=== PATIENT | male | born 1940 | race Caucasian/White ===

== ENCOUNTER 2025-03-01 08:21 | Inpatient (IN) | payer OTHER ==
[~2025-03-01] VITALS: Ht 170.2 cm; Wt 70.0 kg
[2025-03-01 08:39] LABS: BASOPHILS ABSOLUTE AUTO 0.08 K/mm3 (0.00-0.23); BASOPHILS PERCENT AUTO 1 % (0-2); EOSINOPHILS ABSOLUTE AUTO 0.14 K/mm3 (0.00-0.68); EOSINOPHILS PERCENT AUTO 2 % (0-6); Hematocrit 42.5 % (37.0-53.0); Hemoglobin 14.7 g/dL (13.5-17.5); IMMATURE GRAN ABSOLUTE AUTO 0.02 K/mm3 (0.00-0.10); IMMATURE GRAN PERCENT AUTO 0 % (0-1); LYMPHOCYTES ABSOLUTE AUTO 1.16 K/mm3 (0.84-5.20); LYMPHOCYTES PERCENT AUTO 15 % (21-46); MONOCYTES ABSOLUTE AUTO 0.84 K/mm3 (0.16-1.47); MONOCYTES PERCENT AUTO 11 % (4-13); Mean Corpuscular HGB Conc 34.6 g/dL (31.5-36.5); Mean Corpuscular Volume 96 fL (80-100); Mean Platelet Volume 10.5 fL (9.1-12.4); NEUTROPHILS ABSOLUTE AUTO 5.72 K/mm3 (1.96-9.15); NEUTROPHILS PERCENT AUTO 72 % (41-73); Platelet Count 219 K/mm3 (150-400); RDW Coefficient Variation 13.2 % (11.7-14.2); RDW Standard Deviation 47.4 fL (35.1-46.3); Red Blood Cell Count 4.45 M/mm3 (4.30-5.90); White Blood Cell Count 7.96 K/mm3 (4.00-11.30)
[2025-03-01 08:54] LABS: Alanine Aminotransfer (ALT/SGP 23 U/L (12-78); Albumin, Blood 3.2 g/dL (3.4-5.0); Albumin/Globulin Ratio 0.8 (0.8-1.8); Alk Phos 45 U/L (50-136); Anion Gap 8 mmol/L (3-11); Aspartate Aminotrans (AST/SGOT 40 U/L (12-37); Bilirubin, Total 1.1 mg/dL (0.1-1.0); Blood Urea Nitrogen 17 mg/dL (8-24); Bun/Creatinine Ratio 15.7 (12.0-20.0); CO2, Blood 27 mmol/L (21-32); Calcium, Blood 8.7 mg/dL (8.5-10.1); Chloride, Blood 109 mmol/L (98-108); Creatinine, Blood 1.08 mg/dL (0.60-1.20); Ethanol (Alcohol), Blood, Med <3 mg/dL; Globulin, Blood 3.9 g/dL (2.2-4.0); Glomerular Filtration Rate 67 (60-); Glucose, Blood 105 mg/dL (70-99); Potassium, Blood 4.9 mmol/L (3.5-5.5); Sodium, Blood 139 mmol/L (136-145); Total Protein, Blood 7.1 g/dL (6.4-8.2)
[2025-03-01 09:59] LABS: U Amphetamine Screen Not Detected; U Barbituate Screen Not Detected; U Benzodiazapine Screen Not Detected; U Buprenorphine Screen Not Detected; U Cannabinoids Screen Not Detected; U Cocaine Screen Not Detected; U Methadone Screen Not Detected; U Methamphetamine Screen Not Detected; U Opiates Screen Not Detected; U Oxycodone Screen Not Detected; U Phencyclidine Screen Not Detected
[2025-03-01] MEDS ORDERED: Clopidogrel Bisulfate 75 MG Tab PO ONE (10:05)
[2025-03-01] MEDS ORDERED: Aspirin 325 MG Tab PO ONE (10:05)
[2025-03-01 14:33] VITALS: BP 154/76
--- NOTE | 2025-03-01 14:51 | NUR ---
[facility] PERMISSION. [facility] AND [facility]. CARE ONGOING.
--- NOTE | 2025-03-01 15:00 | NUR ---
ADMIT SUMMARY: REPORT TAKEN FROM ANNE MARIE COTE IN THE ED. PT ARRIVED TO MEDICAL FLOOR VIA WHEELCHAIR WITH TECH. PT ABLE TO TRANSFER TO BED WITH SBA. PT CHANGED INTO GOWN WITH HELP. PT GIVEN WATER AND PUDDING PT ABLE TO SWALLOW WELL. THIS NURSE WITTNESSED PT VERBALIZING "YES" TO [place] RECORDS BEING SENT OVER TO [facility]. PT ONLY ABLE TO SAY SINGLE WORDS AT A TIME. PT UNABLE TO FORM SENTENCES CLEARLY.
[2025-03-01] MEDS ORDERED: Amlodipine Bes2.5 MG PO (15:50)
[2025-03-01] MEDS ORDERED: ASPIR 8181 M1 PO (15:51)
[2025-03-01] MEDS ORDERED: VITAMIN C WITH500 M1 PO (15:51)
[2025-03-01] MEDS ORDERED: MULVITA PO (15:52)
[2025-03-01] MEDS ORDERED: Vitamin D1000 UNI1 PO (15:52)
[2025-03-01] MEDS ORDERED: FINA5 PO (15:52)
[2025-03-01] MEDS ORDERED: MELA3 PO (15:52)
[2025-03-01] MEDS ORDERED: POTASSIUM GLUCO90 M1 PO (15:53)
[2025-03-01] MEDS ORDERED: TAMS.4ER PO (15:55)
[2025-03-01] MEDS ORDERED: PYRI100 PO (15:55)
--- NOTE | 2025-03-01 15:59 | NUR ---
[facility] RECORDS RECORDS RECEIVED. MEDICATION LIST RECONSILED PER [facility] RECORDS. CARE ONGOING
[2025-03-01 20:06] VITALS: BP 134/74
[2025-03-02 00:12] VITALS: BP 161/67
[2025-03-02] MEDS ORDERED: Melatonin 5 MG Tablet PO ONE (00:20)
[2025-03-02] MEDS ORDERED: Acetaminophen 325 MG TABLET PO PRN (00:20)
--- NOTE | 2025-03-02 00:28 | NUR ---
HOSPITALIST CALLED FOR TYLENOL AND MELATONIN PER PT REQUEST FOR MIGRAINE AND TO HELP HIM SLEEP (SEE EMAR)
--- NOTE | 2025-03-02 04:36 | NUR ---
SHIFT SUMM: PT HERE FOR OBSERVATION. PT WAS ABLE TO GET SOME SLEEP AND WAS MEDICATED FOR PAIN AND TO HELP WITH SLEEP PER EMAR. PT IS A SBA TO THE BATHROOM FOR SAFETY. PT HAS PATENT RAC. CURRENTLY ON RA AND ON TELE W/NSR IN THE 60'S AND HIST OF A-FIB. PT STILL EXPERIENCING APHASIA AND GETS FRUSTRATED W/IT. PT HAS CALL LIGHT IN REACH AND BED LOW AND LOCKED.
[2025-03-02 04:38] VITALS: BP 122/66
[2025-03-02 07:38] VITALS: BP 154/72
[2025-03-02] MEDS ORDERED: Enoxaparin 40 MG/0.4 ML SYR SC SCH (09:00)
[2025-03-02] MEDS ORDERED: Clopidogrel Bisulfate 75 MG Tab PO SCH (09:00)
[2025-03-02] MEDS ORDERED: Atorvastatin 40 MG Tab PO SCH (09:00)
[2025-03-02] MEDS ORDERED: Apixaban 5 MG Tab PO SCH (09:00)
[2025-03-02] MEDS ORDERED: Aspirin 81 MG Chew PO SCH (09:00)
[2025-03-02 11:08] VITALS: BP 155/73
[2025-03-02 15:53] VITALS: BP 162/72
--- NOTE | 2025-03-02 16:52 | NUR ---
NOTE PT RESTING QUIETLY. UNABLE TO DO THE MRI TODAY. PLANNED FOR TOMORROW. PT SPEACH AND WRITING IMPROVED GREATLY. MRI SCREENING FORM FAXED TO MRI. VSS. EATING WELL. NO COUGHING NOTED. UP ADLIB TO BATHROOM. GAIT STEADY. BED LOW LOCKED, SLIPPY SOCK ON. CALL LIGHT WITH IN REACH. CARE ONGOING.
[2025-03-02 20:02] VITALS: BP 156/95
[2025-03-03 00:37] VITALS: BP 145/80
[2025-03-03] MEDS ORDERED: Melatonin 5 MG Tablet PO ONE (01:05)
[2025-03-03] MEDS ORDERED: Melatonin 5 MG Tablet PO PRN (01:05)
--- NOTE | 2025-03-03 04:01 | NUR ---
CLOTH MERCERIZER OPERATOR SUMMARY: NO ACUTE EVENTS T/O SHIFT. PER DAY SHIFT RN, PT EXPRESSIVE APHASIA HAS IMPROVED. PT ABLE TO MAKE SIMPLE NEEDS KNOWN AND USE PROCESS OF ELIMINATION. NO OTHER DEFICITS NOTED WITH ASSESSMENT. PENDING MRI D/T MACHINE BEING FIXED. NEW ORDER FOR MELATONIN 5MG QHS PRN SLEEP. EFFECTIVE. TELE IN PLACE; SR WITH OCCAISIONAL PACs AND PVCs, HR 60s. VSS. BED IN LOWEST POSITION. CALL LIGHT IN REACH. CARES ONGOING ORDERED.
[2025-03-03 05:33] VITALS: BP 149/83
[2025-03-03] MEDS ORDERED: DEXTROMETHORPHAN/BENZOCAINE 1 EACH LOZENGE MT PRN (08:00)
[2025-03-03 08:29] VITALS: BP 179/77
[2025-03-03] MEDS ORDERED: Calcium Carbonate 500 MG Tab Chew PO PRN (08:50)
[2025-03-03] MEDS ORDERED: Mag Hydrox/Al Hydrox/Simeth 18 ML,Lidocaine 2% Viscous Soln 9 ML,Atropine/Scopalam/Hyos... PO ONE (08:55)
[2025-03-03 10:11] LABS: CHOL/HDL RATIO 3.3; Cholesterol 160 mg/dL (50-200); HDL Cholesterol 48 mg/dL (>39); LDL/HDL RATIO 1.9; Low Density Lipoprotein Chol 93 mg/dL (0-110); Triglycerides 96 mg/dL (30-160); Very Low Density Lipoprot Chol 19 mg/dL (6-32)
[2025-03-03] MEDS ORDERED: Losartan Potassium 25 MG Tab PO SCH (12:00)
[2025-03-03] MEDS ORDERED: ELIQUIS5 M2 PO (14:28)
[2025-03-03] MEDS ORDERED: ATORVASTATIN CA80 M1 PO (14:29)
[2025-03-03] MEDS ORDERED: LOSA50 PO (14:30)
[2025-03-03] MEDS ORDERED: Calcium Carbon500 MG PO (14:30)
[2025-03-03] MEDS ORDERED: PANT20 PO (14:31)
[2025-03-03] MEDS ORDERED: Pantoprazole Sodium 40 MG Injection IV SCH (15:00)
[2025-03-03 16:10] VITALS: BP 116/60
--- NOTE | 2025-03-03 16:43 | NUR ---
PT HAS BEEN AOX4 TODAY JUST AT TIMES HAS APHASIA. HAS BEEN ABLE TO COMMUNICATE TO GET IMPORTANT CONCERNS ACCROSS. PT HAS BEEN EXPERIENCING CHEST PAIN TODAY AND DR SHIPMAN WAS MADE AWARE. MULTIPLE ORDERS PLACED TO EMAR AND MEDICATIONS GIVEN WITH CHEST PAIN PERSISTING. EKG SHOWED ABNORMAL RESULTS AND DR SHIPMAN CAME AND REVIEWED WITH DR CROWLEY. PRIOR DC ORDERS CANCELED. PT ALSO HAD TEMP AND WAS TREATED PER EMAR. DR SHIPMAN WAS MADE AWARE. TELE ALSO CALLED SEEING ST ELEVATIONS ALREADY NOTED BY EKG. LABS ORDERED AND ELIQUIS HELD FOR NEXT DOSE PER DR SHIPMAN. WILL CONTINUE TO MONITOR.
[2025-03-03 19:41] VITALS: BP 116/65
[2025-03-03 22:19] VITALS: BP 123/59
[2025-03-04] VITALS (8 sets, daily range): BP systolic 106–129; BP diastolic 53–78
--- NOTE | 2025-03-04 | NUR ---
PT C/O CHEST PAIN 2/10 AND PRESSURE. VSS. TELE READING: SR 80'S. NOTIFIED OF CRP LAB VALUE AND ABOVE INFORMATION. NO NEW ORDERS, CONTINUE TO MONITOR AT THIS TIME.
[2025-03-04] MEDS ORDERED: Pantoprazole Sodium 20 MG Tab PO SCH (06:00)
--- NOTE | 2025-03-04 06:56 | NUR ---
BILLET BED OPERATOR SUMMARY: PT C/O CHEST PAIN 2/10 AND CHEST PRESSURE. SEE PREVIOUS NUSRING NOTE. MEDICATED X1 GOR GI UPSET WITH TUMS EMAR ORDER; EFFECTIVE. TELE SR 80'S. INDEPENDENT IN ROOM / BED MOBILITY. BED IN LOWEST POSITION. CARES ONGOING ORDERED.
[2025-03-04] MEDS ORDERED: Metoprolol Tartrate 1 MG/ML 5 ML VIAL IV ONE (10:30)
--- NOTE | 2025-03-04 10:57 | NUR ---
THIS RN NOTIFIED THAT PT IN AFIB WITH RVR 130-150. DR. SABA NOTIFED. PER , ORDER 5 MG IV MET[address]ROLOL NOW. DR. SABA AT BEDSIDE. PT EDUCATED ON NEW ONSET AND MEDICATION ADMIN.
[2025-03-04] MEDS ORDERED: Metoprolol Tartrate 25 MG Tab PO SCH (14:00)
--- NOTE | 2025-03-04 18:25 | NUR ---
PT DID NOT DISCHARGE PLANNED TODAY. PT CONVERTED TO AFIB RVR- SUSTAINED. PT RECIEVED 5 MG IV LOPRESSOR AND QUICKLY CONVERTED BACK TO SINUS RHYTHM. NO OTHER CHANGES THIS SHIFT. PT CONTINUES TO HAVE APHASIA BUT PER REPORTS, HAS MUCH IMPROVED. NO OTHER DEFECITS NOTED. INDEPENDENT IN THE ROOM. PLAN TO DISCHARGE SOON RATE IS CONTROLLED.
[2025-03-05 00:49] VITALS: BP 100/57
[2025-03-05 04:23] VITALS: BP 108/62
[2025-03-05 05:38] LABS: Bun/Creatinine Ratio 15.8 (12.0-20.0); Calcium, Blood 9.5 mg/dL (8.5-10.1); Creatinine, Blood 1.2 mg/dL (0.60-1.20); Magnesium, Blood 2.2 mg/dL (1.6-2.4); Potassium, Blood 4.4 mmol/L (3.5-5.5)
--- NOTE | 2025-03-05 05:46 | NUR ---
PATIENT SLEPT WELL. DENIED PAIN OR SOB, NO CHANGE IN APHASIA, NO NEW STROKE SYMPTOMS. DENIES PAIN
[2025-03-05 07:25] VITALS: BP 143/75
[2025-03-05] MEDS ORDERED: METO25 PO (12:53)
--- NOTE | 2025-03-05 14:53 | NUR ---
PT DISCHARGED HOME WITH HOME HEALTH, TRANSPORTATION WAS SET UP THROUGH [place] HOWEVER PT DID NOT WANT TO WAIT. THIS RN ASSISTED PT WITH CALL TO [email or web address]. DISCUSSED DISCHARGE INSTRUCTIONS WITH PT. PT ANXIOUS TO LEAVE. EMPHASIZED IMPORTANCE OF FOLLOW UP APPOINTMENT AND TO TAKE MEDICAITONS PRESCRIBED. MEDICATIONS FAXED OVER TO [facility]. PT DENIES HAVING AND QUESTIONS OR CONCERNS ABOUT DISCHARGE. PT TO FOLLOW UP WITH OUTPATIENT SPEECH THERAPY
== END 2025-03-05 14:07 | disposition home health service (06) | DRG 66 ==
LOC: ER 08:21 → MEDS 08:22
PROVIDERS: Internal Medicine; Student in an Organized Health Care Education/Training Program; ADMIT Internal Medicine
DX: I63.9 Cerebral infarction, unspecified (principal); R47.01 Aphasia; I48.0 Paroxysmal atrial fibrillation; R29.702 NIHSS score 2; I12.9 Hypertensive chronic kidney disease with stage 1 through stage 4 chronic kidney disease, or unspecified chronic kidney disease; N18.2 Chronic kidney disease, stage 2 (mild); N40.0 Benign prostatic hyperplasia without lower urinary tract symptoms; R13.19 Other dysphagia
CPT/HCPCS: 36415; 70450; 70496; 70498; 70551; 80048; 80053; 80061; 80320; 82947; 83735; 84484; 85025; 85651; 85730; 86140; 92523; 93005; 93010; 93306; 96374; 96375; 97112; 97116; 97161; 97530; 99285-25; A9270; G0378; J2470; Q9967

== ENCOUNTER 2025-03-19 10:37 | Emergency (ER) | payer OTHER ==
[~2025-03-19] VITALS: Ht 167.6 cm; Wt 63.5 kg
[~2025-03-19 10:37] MED LIST: ASPIR 8181 M1 PO; ATORVASTATIN CA80 M1 PO; Amlodipine Bes2.5 MG PO; Calcium Carbon500 MG PO; ELIQUIS5 M2 PO; FINA5 PO; LOSA50 PO; MELA3 PO; METO25 PO; MULVITA PO; PANT20 PO; POTASSIUM GLUCO90 M1 PO; PYRI100 PO; TAMS.4ER PO; VITAMIN C WITH500 M1 PO; Vitamin D1000 UNI1 PO
[2025-03-19 11:38] LABS: BASOPHILS PERCENT AUTO 1 % (0-2); EOSINOPHILS ABSOLUTE AUTO 0.08 K/mm3 (0.00-0.68); EOSINOPHILS PERCENT AUTO 1 % (0-6); Hematocrit 44.4 % (37.0-53.0); Hemoglobin 14.8 g/dL (13.5-17.5); IMMATURE GRAN ABSOLUTE AUTO 0.02 K/mm3 (0.00-0.10); IMMATURE GRAN PERCENT AUTO 0 % (0-1); LYMPHOCYTES ABSOLUTE AUTO 1.14 K/mm3 (0.84-5.20); LYMPHOCYTES PERCENT AUTO 11 % (21-46); MONOCYTES ABSOLUTE AUTO 0.55 K/mm3 (0.16-1.47); MONOCYTES PERCENT AUTO 5 % (4-13); Mean Corpuscular HGB 32.3 pg (26.0-34.0); Mean Corpuscular HGB Conc 33.3 g/dL (31.5-36.5); Mean Corpuscular Volume 97 fL (80-100); Mean Platelet Volume 9.7 fL (9.1-12.4); NEUTROPHILS PERCENT AUTO 82 % (41-73); Platelet Count 399 K/mm3 (150-400); RDW Coefficient Variation 12.7 % (11.7-14.2); RDW Standard Deviation 45.2 fL (35.1-46.3); Red Blood Cell Count 4.58 M/mm3 (4.30-5.90); White Blood Cell Count 10.59 K/mm3 (4.00-11.30)
[2025-03-19 11:58] LABS: Albumin, Blood 3.4 g/dL (3.4-5.0); Albumin/Globulin Ratio 0.8 (0.8-1.8); Bilirubin, Total 0.8 mg/dL (0.1-1.0); Bun/Creatinine Ratio 13.2 (12.0-20.0); Calcium, Blood 9.8 mg/dL (8.5-10.1); Creatinine, Blood 1.06 mg/dL (0.60-1.20); Potassium, Blood 3.9 mmol/L (3.5-5.5); Total Protein, Blood 7.4 g/dL (6.4-8.2)
== END 2025-03-19 12:30 ==
LOC: ER 10:37
PROVIDERS: Emergency Medicine
DX: I10 Essential (primary) hypertension (principal); I48.91 Unspecified atrial fibrillation; Z86.73 Personal history of transient ischemic attack (TIA), and cerebral infarction without residual deficits; E78.5 Hyperlipidemia, unspecified; Z79.01 Long term (current) use of anticoagulants; Z79.899 Other long term (current) drug therapy
CPT/HCPCS: 70450; 80053; 85025; 93005; 93010; 99284-25